=== PATIENT | male | born 1975 | race Caucasian/White ===

== ENCOUNTER 2019-03-27 08:15 | Inpatient (IN) | payer OTHER ==
[2019-03-27 08:34] VITALS: BMI 21.4
--- NOTE | 2019-03-27 09:01 | HP ---
COWS - Scale Resting Pulse: 0= [place] 80 or Below Sweatin= Chills/Flushing Restless Observation: 1= Difficult to Sit Still Pupil Size: 1= Pupils >than Normal Bone or Joint Aches: 2= Severe Diffuse Aches Runny Nose/ Eye Tearin= Runny Nose/Eyes GI Upset > 30mins: 2= Nausea/Diarrhea Tremor Observation: 2= Slight Tremor Visible Yawning Observation: 1= 1-2x During Session Anxiety or Irritability: 2=Irritable/Anxious Goose Flesh Skin: 0=Smooth Skin COWS Score: 14 CIWA Score Nausea/Vomitin Muscle Tremors: 2 Anxiety: 3 Agitation: 3 Paroxysmal Sweats: 1-Minimal Palms Moist Orientation: 0-Oriented Tacttile Disturbances: 1-Very Mild Itch/Numbness Auditory Disturbances: 0-None Visual Disturbances: 0-None Headache: 2-Mild CIWA-Ar Total Score: 14 - Admission Criteria OASAS Guidelines: Admission for Medically Managed Detox: Requires at least one of the followin. CIWA greater than 12 2. Seizures within the past 24 hours 3. Delirium tremens within the past 24 hours 4. Hallucinations within the past 24 hours 5. Acute intervention needed for co occurring medical disorder 6. Acute intervention needed for co occurring psychiatric disorder 7. Severe withdrawal that cannot be handled at a lower level of care (continued vomiting, continued diarrhea, abnormal vital signs) requiring intravenous medication and/or fluids 8. 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 Renal/: Yes: Renal Failure (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 ,need dialysis,now fully recover,teated at [facility]) Psych: Yes: Depression, Other (ptsd depression) - Smoking History Smoking history: Current every day smoker Have you smoked in the past 12 months: No Aproximately how many cigarettes per day: 5 - Alcohol/Substance Use Hx Alcohol Use: Yes History of Substance Use: reports: Cocaine, Heroin - Social History Usual Living Arrangement: Yes: With Spouse 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 History of Recent Travel: No Admission ROS S - HPI Chief Complaint: i need help to stop using heroin,alcohol,cocaine Allergies/Adverse Reactions: Allergies Allergy/AdvReac Type Severity Reaction Status Date / Time fish derived Allergy Severe Rash Verified 03/27/19 08:26 Pork/Porcine Containing Allergy Swelling Verified 03/27/19 08:26 Products History of Present Illness: this 43 years old male with heroin,alcohol,cocaine dependence,seeking detox, withdrawal symptom, last detox [facility] in 2017 had admission in this facility before no seizure syncope renal failure post trauma to kidney admitted and had dialysis at [facility] in 2017 recover completed pancreatitis nicotine dependence longest sobriety ptsd Exam Limitations: No Limitations - Ebola screening Have you traveled outside of the country in the last 21 days: No Have you had contact with anyone from an Ebola affected area: No Do you have a fever: No - Review of Systems Constitutional: Chills, Loss of Appetite, Malaise, Night Sweats, Changes in sleep EENT: reports: Tearing, Nose Congestion Respiratory: reports: No Symptoms reported Cardiac: reports: No Symptoms Reported GI: reports: Diarrhea, Nausea, Poor Appetite, Other (pancreatitis) : reports: No Symptoms Reported, Other (renal failure post tauma, rhabdomyolysis) Musculoskeletal: reports: Back Pain, Muscle Pain Integumentary: reports: Dryness Neuro: reports: Tremors Endocrine: reports: No Symptoms Reported Hematology: reports: No Symptoms Reported Psychiatric: reports: No Sypmtoms Reported, Judgement Intact, Mood/Affect Appropiate, Orientated x3, Depressed, other (ptsd) Patient History - Patient Medical History Hx Anemia: No Hx Asthma: No Hx Chronic Obstructive Pulmonary Disease (COPD): No Hx Cancer: No Hx Cardiac Disorders: No Hx Congestive Heart Failure: No Hx Hypertension: No Hx Hypercholesterolemia: No Hx Pacemaker: No HX Cerebrovascular Accident: No Hx Seizures: No Hx Dementia: No Hx Diabetes: No Hx Gastrointestinal Disorders: Yes (pancreatitis x6,last 2018) Hx Liver Disease: No Hx Genitourinary Disorders: No Hx Sexually Transmitted Disorders: No Hx Renal Disease (ESRD): Yes (acute renal failure,post traume,rhabdomyolysis, fuuly recover) Hx Thyroid Disease: No Hx Human Immunodeficiency Virus (HIV): No Hx Hepatitis C: No Hx Depression: Yes (currently on treatment) Hx Suicide Attempt: Yes (pill overdose in 03/2011) Hx Bipolar Disorder: No Hx Schizophrenia: No Other Medical History: no suiidal,no homicial - Patient Surgical History Past Surgical History: No Hx Neurologic Surgery: No Hx Cataract Extraction: No Hx Cardiac Surgery: No Hx Lung Surgery: No Hx Breast Surgery: No Hx Breast Biopsy: No Hx Abdominal Surgery: No Hx Appendectomy: No Hx Cholecystectomy: No Hx Genitourinary Surgery: No Hx Section: No Hx Orthopedic Surgery: No Anesthesia Reaction: No - PPD History Previous Implant?: Yes Implanted On Prior [facility] Admission?: Yes Date: 12/18/11 PPD to be Administered?: Yes - Smoking Cessation Smoking history: Smoker current status UNK Have you smoked in the past 12 months: No Aproximately how many cigarettes per day: 5 Hx Chewing Tobacco Use: No Initiated information on smoking cessation: Yes 'Breaking Loose' booklet given: 03/27/19 - Substance & Tx. History Hx Alcohol Use: Yes Hx Substance Use: Yes Substance Use Type: Alcohol, Cocaine, Heroin Hx Substance Use Treatment: Yes ([facility] in 2017) - Substances abused Alcohol Substance route: Oral Frequency: Daily Amount used: 6pack beer/1pint of vodka Age of first use: 17 Date of last use: 03/27/19 Heroin Substance route: Injection Frequency: Daily Amount used: 10 bags Age of first use: 12 Date of last use: 03/27/19 Crack Substance route: Smoking Frequency: Daily Amount used: $40 Age of first use: 17 Date of last use: 03/27/19 Admission Physical Exam BHS - Vital Signs Vital Signs: Vital Signs - 24 hr 03/27/19 08:17 Temperature 97.8 F Pulse Rate 78 Respiratory 16 Rate Blood Pressure 124/78 - Physical General Appearance: Yes: Moderate Distress, Tremorous, Irritable, Sweating, Anxious HEENTM: Yes: Normal ENT Inspection, GURU, Pharynx Normal, Other (abraion of vertex) Respiratory: Yes: Lungs Clear, Normal Breath Sounds, No Respiratory Distress Neck: Yes: Within Normal Limits, Supple, Trachea in good position Breast: Yes: Within Normal Limits Cardiology: Yes: Within Normal Limits, Regular Rhythm, Regular Rate, S1, S2 Abdominal: Yes: Within Normal Limits, Normal Bowel Sounds, Non Tender, Flat Genitourinary: Yes: Within Normal Limits Back: Yes: Muscle Spasm Extremities: Yes: Tremors Neurological: Yes: gold frame assembler II-XII NML intact, Fully Oriented, Alert, Motor Strength 5/5 Integumentary: Yes: Dry, Rash, Track [place]cock Lymphatic: Yes: Within Normal Limits - Diagnostic (1) Opioid dependence with withdrawal Current Visit: Yes Status: Acute (2) Alcohol dependence with uncomplicated withdrawal Current Visit: Yes Status: Acute (3) Cocaine dependence Current Visit: No Status: Active (4) Nicotine dependence Current Visit: Yes Status: Acute (5) Weight loss Current Visit: Yes Status: Acute (6) IVDU (intravenous drug user) Current Visit: Yes Status: Acute (7) PTSD (post-traumatic stress disorder) Current Visit: Yes Status: Acute (8) Depression Current Visit: Yes Status: Acute (9) Abrasion Current Visit: Yes Status: Acute (10) History of pancreatitis Current Visit: Yes Status: Acute (11) History of renal failure Current Visit: Yes Status: Acute Cleared for Admission BHS - Detox or Rehab S Level of Care: Medically Managed Detox Regimen/Protocol: Methadone/Librium Inpatient Rehab Admission - Rehab Decision to Admit Inpatient rehab admission?: No
[2019-03-27] MEDS ORDERED: ACETAMINOPHEN 325 MG TABLET (FP) PO PRN ×2 (09:24)
[2019-03-27] MEDS ORDERED: MAGNESIUM CITRATE 300 ML BOTTLE PO PRN (09:24)
[2019-03-27] MEDS ORDERED: BISMUTH SUBSALICYLATE 262 MG/15 ML BTL PO PRN (09:24)
[2019-03-27] MEDS ORDERED: MENTHOL/PHENOL 1 EACH UD MM PRN (09:24)
[2019-03-27] MEDS ORDERED: IBUPROFEN 400 MG TABLET (FP) PO PRN (09:24)
[2019-03-27] MEDS ORDERED: METHADONE HCL 10 MG TABLET (FOR DETOX USE ONLY) PO ONE (09:55)
[2019-03-27] MEDS: BACITRACIN 15 GM TUBE TOPICAL OINTMENT TP SCH ×2 (11:32→22:17)
[2019-03-27] MEDS: PRENATAL VITAMINS W/ FOLIC ACID TABLET (FP) PO SCH (11:32)
[2019-03-27] MEDS: NICOTINE 14 MG/24 HOURS TOPICAL PATCH TD SCH (11:33)
[2019-03-27] MEDS: METHOCARBAMOL 500 MG TABLET PO PRN ×2 (11:38→17:40)
[2019-03-27] MEDS: chlordiazePOXIDE HCL 25 MG CAPSULE PO PRN (11:38)
[2019-03-27] MEDS: cloNIDine HCL 0.1 MG TABLET PO PRN ×2 (11:42→17:05)
[2019-03-27 11:58] LABS: HEMATOCRIT 41.7 % (35.4-49); MCH 30.1 pg (25.7-33.7); MCHC 33.6 g/dl (32.0-35.9); MEAN CELL VOLUME 89.6 fl (80-96); MEAN PLT VOLUME 7.8 fl (7.5-11.1); PLATELET COUNT 228 K/MM3 (134-434); RBC 4.65 M/mm3 (4.00-5.60); RDW 13.7 % (11.9-15.9); WHITE BLOOD COUNT 5.8 K/mm3 (4.0-10.0)
[2019-03-27 12:00] LABS: ALBUMIN 3.7 g/dl (3.4-5.0); BILIRUBIN,TOTAL 0.3 mg/dL (0.2-1); BLOOD UREA NITROGEN 17.1 mg/dL (7-18); CALCIUM 9.2 mg/dL (8.5-10.1); CREATININE 1.1 mg/dL (0.55-1.3); POTASSIUM 4.8 mmol/L (3.5-5.1); TOT PROT 7.6 g/dl (6.4-8.2)
[2019-03-27] MEDS: MAGNESIUM HYDROX 2400MG/30ML ORAL SUSPENSION 30 ML CUP PO PRN (17:40)
[2019-03-27] MEDS: MAG HYDROX/AL HYDROX/SIMETH 30 ML UNIT-DOSE CUP PO PRN (17:57)
[2019-03-27] MEDS: THIAMINE HCL 100 MG TABLET (FP) PO SCH (22:17)
[2019-03-27] MEDS: MELATONIN 5 MG TABLETS PO PRN (22:17)
[2019-03-27] MEDS: chlordiazePOXIDE HCL 25 MG CAPSULE PO SCH (22:17)
[2019-03-28] MEDS: chlordiazePOXIDE HCL 25 MG CAPSULE PO SCH ×4 (06:19→22:27)
[2019-03-28] MEDS: METHOCARBAMOL 500 MG TABLET PO PRN ×3 (06:20→22:34)
--- NOTE | 2019-03-28 08:27 | CONSULT ---
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 Refer to addiction counselor's summary for further information Medical History: Significant for history of renal failure and pancreatitis. Smokes 5 cigarettes daily Psychiatric History: Patient while being seen by insurance underwriter sales, walked out of the office saying:" I really don't want to do this"
[2019-03-28] MEDS ORDERED: METHADONE HCL 10 MG TABLET (FOR DETOX USE ONLY) ONE (09:31)
[2019-03-28] MEDS ORDERED: METHADONE HCL 5 MG TABLET (FOR DETOX USE ONLY) ONE (09:31)
[2019-03-28] MEDS ORDERED: METHADONE (DETOX) 20 MG, METHADONE (DETOX) 5 MG PO ONE (10:00)
--- NOTE | 2019-03-28 10:07 | PN ---
[facility] CIWA - CIWA Score Nausea/Vomitin-No Nausea/No Vomiting Muscle Tremors: 3 Anxiety: 3 Agitation: 3 Paroxysmal Sweats: 3 Orientation: 0-Oriented Tacttile Disturbances: 0-None Auditory Disturbances: 0-None Visual Disturbances: 0-None Headache: 0-None Present CIWA-Ar Total Score: 12 [facility] COWS - Scale Resting Pulse: 0= [place] 80 or Below Sweatin= Chills/Flushing Restless Observation: 1= Difficult to Sit Still Pupil Size: 0= Normal to Room Light Bone or Joint Aches: 2= Severe Diffuse Aches Runny Nose/ Eye Tearin= Nasal Congestion GI Upset > 30mins: 0= None Tremor Observation of Outstretched Hands: 1= Tremor [place], Not Seen Yawning Observation: 2= >3x During Session Anxiety or Irritability: 2=Irritable/Anxious Goose Flesh Skin: 0=Smooth Skin COWS Score: 10 [facility] Progress Note (SOAP) Subjective: chills sweats irritable agitation interrupted sleep Objective: 03/28/19 10:06 Vital Signs Temperature 97.3 F L 03/28/19 09:18 Pulse Rate 58 L 03/28/19 09:18 Respiratory Rate 18 03/28/19 09:18 Blood Pressure 112/68 03/28/19 09:18 O2 Sat by Pulse Oximetry (%) Laboratory Tests 03/27/19 03/27/19 03/27/19 09:45 09:45 09:45 WBC 5.8 RBC 4.65 Hgb 14.0 Hct 41.7 MCV 89.6 MCH 30.1 MCHC 33.6 RDW 13.7 Plt Count 228 MPV 7.8 Sodium 141 Potassium 4.8 Chloride 107 Carbon Dioxide 28 Anion Gap 6 L BUN 17.1 Creatinine 1.1 Est GFR (CKD-EPI)AfAm 95.46 Est GFR (CKD-EPI)NonAf 82.36 Random Glucose 88 Calcium 9.2 Total Bilirubin 0.3 AST 12 L ALT 19 Alkaline Phosphatase 65 Total Protein 7.6 Albumin 3.7 RPR Titer Nonreactive aaox3 ambulating no acute distress Assessment: 03/28/19 10:06 withdrawals Plan: continue detox
[2019-03-28] MEDS: BACITRACIN 15 GM TUBE TOPICAL OINTMENT TP SCH ×2 (10:15→22:28)
[2019-03-28] MEDS: PRENATAL VITAMINS W/ FOLIC ACID TABLET (FP) PO SCH (10:15)
[2019-03-28] MEDS: NICOTINE 14 MG/24 HOURS TOPICAL PATCH TD SCH (10:15)
[2019-03-28 10:38] LABS: URINE APPEARANCE CLEAR; URINE BILIRUBIN NEGATIVE (NEGATIVE); URINE COLOR YELLOW; URINE GLUCOSE (UA) NEGATIVE (NEGATIVE); URINE KETONE NEGATIVE (NEGATIVE); URINE LEUK ESTERASE NEGATIVE (NEGATIVE); URINE NITRITE NEGATIVE (NEGATIVE); URINE PROTEIN NEGATIVE (NEGATIVE)
[2019-03-28] MEDS: cloNIDine HCL 0.1 MG TABLET PO PRN (12:40)
[2019-03-28] MEDS: MAG HYDROX/AL HYDROX/SIMETH 30 ML UNIT-DOSE CUP PO PRN (13:31)
[2019-03-28] MEDS: MELATONIN 5 MG TABLETS PO PRN (22:28)
[2019-03-28] MEDS: THIAMINE HCL 100 MG TABLET (FP) PO SCH (22:28)
[2019-03-29] MEDS: chlordiazePOXIDE HCL 25 MG CAPSULE PO SCH ×4 (05:35→22:18)
[2019-03-29] MEDS: METHOCARBAMOL 500 MG TABLET PO PRN ×3 (05:38→18:56)
[2019-03-29] MEDS ORDERED: METHADONE HCL 10 MG TABLET (FOR DETOX USE ONLY) PO ONE (10:00)
[2019-03-29] MEDS: PRENATAL VITAMINS W/ FOLIC ACID TABLET (FP) PO SCH (10:07)
[2019-03-29] MEDS: MAGNESIUM HYDROX 2400MG/30ML ORAL SUSPENSION 30 ML CUP PO PRN (10:07)
[2019-03-29] MEDS: NICOTINE 14 MG/24 HOURS TOPICAL PATCH TD SCH (10:07)
[2019-03-29] MEDS: BACITRACIN 15 GM TUBE TOPICAL OINTMENT TP SCH ×2 (10:08→22:30)
[2019-03-29] MEDS: cloNIDine HCL 0.1 MG TABLET PO PRN ×2 (10:10→18:56)
--- NOTE | 2019-03-29 10:10 | PN ---
[facility] CIWA - CIWA Score Nausea/Vomitin-No Nausea/No Vomiting Muscle Tremors: 2 Anxiety: 2 Agitation: 2 Paroxysmal Sweats: 3 Orientation: 0-Oriented Tacttile Disturbances: 0-None Auditory Disturbances: 0-None Visual Disturbances: 0-None Headache: 0-None Present CIWA-Ar Total Score: 9 [facility] COWS - Scale Resting Pulse: 0= [place] 80 or Below Sweatin= Chills/Flushing Restless Observation: 1= Difficult to Sit Still Pupil Size: 0= Normal to Room Light Bone or Joint Aches: 2= Severe Diffuse Aches Runny Nose/ Eye Tearin= None GI Upset > 30mins: 0= None Tremor Observation of Outstretched Hands: 1= Tremor [place], Not Seen Yawning Observation: 1= 1-2x During Session Anxiety or Irritability: 1=Feels Anxious/Irritable Goose Flesh Skin: 0=Smooth Skin COWS Score: 7 S Progress Note (SOAP) Subjective: body aches sweats irritable agitation Objective: 03/29/19 10:09 Vital Signs Temperature 97.1 F L 03/29/19 09:31 Pulse Rate 59 L 03/29/19 09:31 Respiratory Rate 18 03/29/19 09:31 Blood Pressure 113/76 03/29/19 09:31 O2 Sat by Pulse Oximetry (%) Laboratory Tests 03/27/19 03/27/19 03/27/19 09:45 09:45 09:45 WBC 5.8 RBC 4.65 Hgb 14.0 Hct 41.7 MCV 89.6 MCH 30.1 MCHC 33.6 RDW 13.7 Plt Count 228 MPV 7.8 Sodium 141 Potassium 4.8 Chloride 107 Carbon Dioxide 28 Anion Gap 6 L BUN 17.1 Creatinine 1.1 Est GFR (CKD-EPI)AfAm 95.46 Est GFR (CKD-EPI)NonAf 82.36 Random Glucose 88 Calcium 9.2 Total Bilirubin 0.3 AST 12 L ALT 19 Alkaline Phosphatase 65 Total Protein 7.6 Albumin 3.7 Urine Color Urine Appearance Urine pH Ur Specific [place] Urine Protein Urine Glucose (UA) Urine Ketones Urine Blood Urine Nitrite Urine Bilirubin Urine Urobilinogen Ur Leukocyte Esterase RPR Titer Nonreactive 03/28/19 08:00 WBC RBC Hgb Hct MCV MCH MCHC RDW Plt Count MPV Sodium Potassium Chloride Carbon Dioxide Anion Gap BUN Creatinine Est GFR (CKD-EPI)AfAm Est GFR (CKD-EPI)NonAf Random Glucose Calcium Total Bilirubin AST ALT Alkaline Phosphatase Total Protein Albumin Urine Color Yellow Urine Appearance Clear Urine pH 7.0 D Ur Specific [place] 1.023 Urine Protein Negative Urine Glucose (UA) Negative Urine Ketones Negative Urine Blood Negative Urine Nitrite Negative Urine Bilirubin Negative Urine Urobilinogen 1.0 Ur Leukocyte Esterase Negative RPR Titer aaox3 ambulating no acute distress Assessment: 03/29/19 10:09 withdrawals Plan: continue detox increase fluids motrin/roboxin prn
[2019-03-29] MEDS: chlordiazePOXIDE HCL 25 MG CAPSULE PO PRN (12:41)
[2019-03-29] MEDS: THIAMINE HCL 100 MG TABLET (FP) PO SCH (22:18)
[2019-03-29] MEDS: MELATONIN 5 MG TABLETS PO PRN (22:18)
[2019-03-29] MEDS: hydrOXYzine PAMOATE 25 MG CAPSULE (FP) PO PRN (22:20)
[2019-03-29] MEDS: MAG HYDROX/AL HYDROX/SIMETH 30 ML UNIT-DOSE CUP PO PRN (22:45)
[2019-03-30] MEDS ORDERED: chlordiazePOXIDE HCL 10 MG CAPSULE PO PRN
[2019-03-30] MEDS: chlordiazePOXIDE HCL 10 MG CAPSULE PO SCH ×4 (06:10→22:10)
[2019-03-30] MEDS ORDERED: METHADONE HCL 5 MG TABLET (FOR DETOX USE ONLY) ONE (08:44)
[2019-03-30] MEDS ORDERED: METHADONE HCL 10 MG TABLET (FOR DETOX USE ONLY) ONE (08:45)
[2019-03-30] MEDS ORDERED: METHADONE (DETOX) 10 MG, METHADONE (DETOX) 5 MG PO ONE (10:00)
[2019-03-30] MEDS: NICOTINE 14 MG/24 HOURS TOPICAL PATCH TD SCH (10:05)
[2019-03-30] MEDS: PRENATAL VITAMINS W/ FOLIC ACID TABLET (FP) PO SCH (10:05)
[2019-03-30] MEDS: BACITRACIN 15 GM TUBE TOPICAL OINTMENT TP SCH ×2 (10:06→22:10)
[2019-03-30] MEDS: METHOCARBAMOL 500 MG TABLET PO PRN ×2 (10:09→17:48)
--- NOTE | 2019-03-30 10:55 | PN ---
[facility] CIWA - CIWA Score Nausea/Vomitin-No Nausea/No Vomiting Muscle Tremors: 2 Anxiety: 2 Agitation: 2 Paroxysmal Sweats: 2 Orientation: 0-Oriented Tacttile Disturbances: 0-None Auditory Disturbances: 0-None Visual Disturbances: 0-None Headache: 0-None Present CIWA-Ar Total Score: 8 [facility] COWS - Scale Resting Pulse: 2= [place] 101-120 Sweatin= Chills/Flushing Restless Observation: 1= Difficult to Sit Still Pupil Size: 0= Normal to Room Light Bone or Joint Aches: 1= Mild Discomfort Runny Nose/ Eye Tearin= None GI Upset > 30mins: 0= None Tremor Observation of Outstretched Hands: 1= Tremor [place], Not Seen Yawning Observation: 1= 1-2x During Session Anxiety or Irritability: 1=Feels Anxious/Irritable Goose Flesh Skin: 0=Smooth Skin COWS Score: 8 [facility] Progress Note (SOAP) Subjective: sweats body aches interrupted sleep shakes Objective: 03/30/19 10:57 Vital Signs Temperature 97.5 F L 03/30/19 10:12 Pulse Rate 69 03/30/19 10:12 Respiratory Rate 18 03/30/19 10:12 Blood Pressure 110/67 03/30/19 10:12 O2 Sat by Pulse Oximetry (%) Laboratory Tests 03/27/19 03/27/19 03/27/19 09:45 09:45 09:45 WBC 5.8 RBC 4.65 Hgb 14.0 Hct 41.7 MCV 89.6 MCH 30.1 MCHC 33.6 RDW 13.7 Plt Count 228 MPV 7.8 Sodium 141 Potassium 4.8 Chloride 107 Carbon Dioxide 28 Anion Gap 6 L BUN 17.1 Creatinine 1.1 Est GFR (CKD-EPI)AfAm 95.46 Est GFR (CKD-EPI)NonAf 82.36 Random Glucose 88 Calcium 9.2 Total Bilirubin 0.3 AST 12 L ALT 19 Alkaline Phosphatase 65 Total Protein 7.6 Albumin 3.7 Urine Color Urine Appearance Urine pH Ur Specific [place] Urine Protein Urine Glucose (UA) Urine Ketones Urine Blood Urine Nitrite Urine Bilirubin Urine Urobilinogen Ur Leukocyte Esterase RPR Titer Nonreactive 03/28/19 08:00 WBC RBC Hgb Hct MCV MCH MCHC RDW Plt Count MPV Sodium Potassium Chloride Carbon Dioxide Anion Gap BUN Creatinine Est GFR (CKD-EPI)AfAm Est GFR (CKD-EPI)NonAf Random Glucose Calcium Total Bilirubin AST ALT Alkaline Phosphatase Total Protein Albumin Urine Color Yellow Urine Appearance Clear Urine pH 7.0 D Ur Specific [place] 1.023 Urine Protein Negative Urine Glucose (UA) Negative Urine Ketones Negative Urine Blood Negative Urine Nitrite Negative Urine Bilirubin Negative Urine Urobilinogen 1.0 Ur Leukocyte Esterase Negative RPR Titer aaox3 ambulating no acute distress Assessment: 03/30/19 10:57 withdrawals Plan: continue detox increase fluids
[2019-03-30] MEDS: MAG HYDROX/AL HYDROX/SIMETH 30 ML UNIT-DOSE CUP PO PRN (20:18)
[2019-03-30] MEDS: MELATONIN 5 MG TABLETS PO PRN (22:10)
[2019-03-30] MEDS: THIAMINE HCL 100 MG TABLET (FP) PO SCH (22:10)
[2019-03-31] MEDS ORDERED: hydrOXYzine PAMOATE 25 MG CAPSULE (FP) PO ONE (02:05)
[2019-03-31] MEDS: MAG HYDROX/AL HYDROX/SIMETH 30 ML UNIT-DOSE CUP PO PRN (02:06)
[2019-03-31] MEDS: chlordiazePOXIDE HCL 10 MG CAPSULE PO SCH ×2 (05:48→17:41)
[2019-03-31] MEDS: METHOCARBAMOL 500 MG TABLET PO PRN ×2 (05:49→17:43)
[2019-03-31] MEDS: BACITRACIN 15 GM TUBE TOPICAL OINTMENT TP SCH ×2 (09:37→23:51)
[2019-03-31] MEDS: NICOTINE 14 MG/24 HOURS TOPICAL PATCH TD SCH (09:37)
[2019-03-31] MEDS: PRENATAL VITAMINS W/ FOLIC ACID TABLET (FP) PO SCH (09:37)
[2019-03-31] MEDS ORDERED: METHADONE HCL 10 MG TABLET (FOR DETOX USE ONLY) PO ONE (10:00)
--- NOTE | 2019-03-31 11:56 | PN ---
[facility] CIWA - CIWA Score Nausea/Vomitin-No Nausea/No Vomiting Muscle Tremors: 1-None Visible, but [place] Anxiety: 1-Mildly Anxious Agitation: 1-Slight > Activity Paroxysmal Sweats: No Perspiration Orientation: 0-Oriented Tacttile Disturbances: 0-None Auditory Disturbances: 0-None Visual Disturbances: 0-None Headache: 0-None Present CIWA-Ar Total Score: 3 S COWS - Scale Resting Pulse: 0= [place] 80 or Below Sweatin= Chills/Flushing Restless Observation: 1= Difficult to Sit Still Pupil Size: 0= Normal to Room Light Bone or Joint Aches: 1= Mild Discomfort Runny Nose/ Eye Tearin= None GI Upset > 30mins: 0= None Tremor Observation of Outstretched Hands: 0= None Yawning Observation: 0= None Anxiety or Irritability: 0= None Goose Flesh Skin: 0=Smooth Skin COWS Score: 3 [facility] Progress Note (SOAP) Subjective: feeling better sweats Objective: 03/31/19 11:55 Vital Signs Temperature 97.9 F 03/31/19 09:34 Pulse Rate 70 03/31/19 09:34 Respiratory Rate 18 03/31/19 09:34 Blood Pressure 123/76 03/31/19 09:34 O2 Sat by Pulse Oximetry (%) aaox3 ambulating no acute distress Assessment: 03/31/19 11:55 mild withdrawals Plan: continue detox d/c in am
[2019-03-31] MEDS: MELATONIN 5 MG TABLETS PO PRN (22:14)
[2019-03-31] MEDS: hydrOXYzine PAMOATE 25 MG CAPSULE (FP) PO PRN (22:14)
[2019-03-31] MEDS: THIAMINE HCL 100 MG TABLET (FP) PO SCH (23:52)
[2019-04-01] MEDS ORDERED: chlordiazePOXIDE HCL 10 MG CAPSULE PO ONE (05:00)
[2019-04-01] MEDS ORDERED: METHADONE HCL 5 MG TABLET (FOR DETOX USE ONLY) PO ONE (06:00)
[2019-04-01 06:52] VITALS: BP 105/66; PULSE 68; TEMP 97.7
--- NOTE | 2019-04-01 16:57 | DS ---
[facility] Detox Discharge Summary Admission Date: 03/27/19 Discharge Date: 04/01/19 - History Present History: Alcohol Dependence, Opioid Dependence Additional Comments: Patient completed detox successfully and discharged safely. Patient to follow up with PCP within 1-2 weeks. - Physical Exam Results Vital Signs: Vital Signs Temperature 97.7 F 04/01/19 06:00 Pulse Rate 68 04/01/19 06:00 Respiratory Rate 18 04/01/19 06:00 Blood Pressure 105/66 04/01/19 06:00 O2 Sat by Pulse Oximetry (%) Pertinent Admission Physical Exam Findings: Withdrawal sxs Laboratory Tests 03/27/19 03/27/19 03/27/19 09:45 09:45 09:45 WBC 5.8 RBC 4.65 Hgb 14.0 Hct 41.7 MCV 89.6 MCH 30.1 MCHC 33.6 RDW 13.7 Plt Count 228 MPV 7.8 Sodium 141 Potassium 4.8 Chloride 107 Carbon Dioxide 28 Anion Gap 6 L BUN 17.1 Creatinine 1.1 Est GFR (CKD-EPI)AfAm 95.46 Est GFR (CKD-EPI)NonAf 82.36 Random Glucose 88 Calcium 9.2 Total Bilirubin 0.3 AST 12 L ALT 19 Alkaline Phosphatase 65 Total Protein 7.6 Albumin 3.7 Urine Color Urine Appearance Urine pH Ur Specific [place] Urine Protein Urine Glucose (UA) Urine Ketones Urine Blood Urine Nitrite Urine Bilirubin Urine Urobilinogen Ur Leukocyte Esterase RPR Titer Nonreactive 03/28/19 08:00 WBC RBC Hgb Hct MCV MCH MCHC RDW Plt Count MPV Sodium Potassium Chloride Carbon Dioxide Anion Gap BUN Creatinine Est GFR (CKD-EPI)AfAm Est GFR (CKD-EPI)NonAf Random Glucose Calcium Total Bilirubin AST ALT Alkaline Phosphatase Total Protein Albumin Urine Color Yellow Urine Appearance Clear Urine pH 7.0 D Ur Specific [place] 1.023 Urine Protein Negative Urine Glucose (UA) Negative Urine Ketones Negative Urine Blood Negative Urine Nitrite Negative Urine Bilirubin Negative Urine Urobilinogen 1.0 Ur Leukocyte Esterase Negative RPR Titer Labs reviewed - Treatment Hospital Course: Detox Protocol Followed, Detoxed Safely, Responded well, Discharged Condition Good - Medication Discharge Medications: Ambulatory Orders Quetiapine Fumarate [Seroquel -] 200 mg PO HS 12/15/11 traZODone HCL [Desyrel -] 150 mg PO HS 12/15/11 - Diagnosis (1) Cocaine dependence Status: Chronic (2) Alcohol dependence with uncomplicated withdrawal Status: Acute (3) Depression Status: Chronic (4) Opioid dependence with withdrawal Status: Acute (5) PTSD (post-traumatic stress disorder) Status: Chronic - AMA Did Patient Leave Against Medical Advice: No (Follow up with PCP within 1-2 weeks)
== END 2019-04-01 06:13 | disposition home or self-care (01) | DRG 773 ==
LOC: YASAS 08:15 → Y6N 09:14
PROVIDERS: ADMIT Allergy & Immunology; ATTEND Allergy & Immunology
PROC: HZ2ZZZZ Detoxification Services for Substance Abuse Treatment (ICD-10-PCS; principal; 2019-03-27)
DX: F11.23 Opioid dependence with withdrawal (principal); F10.230 Alcohol dependence with withdrawal, uncomplicated; F14.20 Cocaine dependence, uncomplicated; F17.210 Nicotine dependence, cigarettes, uncomplicated; F43.10 Post-traumatic stress disorder, unspecified; F32.9 Major depressive disorder, single episode, unspecified; R63.4 Abnormal weight loss; Z68.21 Body mass index [BMI] 21.0-21.9, adult; Z87.448 Personal history of other diseases of urinary system; Z87.19 Personal history of other diseases of the digestive system; Z91.5 Personal history of self-harm; Z91.013 Allergy to seafood; Z91.018 Allergy to other foods
CPT/HCPCS: 36415; 80053; 81003; 85027; 86593; J0735

== ENCOUNTER 2019-12-26 09:24 | Inpatient (IN) | payer OTHER ==
[2019-12-26 10:00] VITALS: BMI 21.6
--- NOTE | 2019-12-26 10:22 | BHS.RME ---
Substance Use & Tx History - Substance Use History Alcohol Substance amount: 1 pint vodka Frequency of use: Daily Substance route: Oral Date of Last Use: 12/26/19 (starte age 17) Heroin Substance amount: 12-13 bags Frequency of use: Daily Substance route: Inhalation (ex: sniffing or snorting) Date of Last Use: 12/26/19 Marijuana/Hashish Substance amount: 2 blunts Frequency of use: Daily Substance route: Smoking Date of Last Use: 12/25/19 (started age 12) Cocaine- Powder Substance amount: $20 Frequency of use: Daily Substance route: Injection (ex: intravenous or skin popping) Date of Last Use: 12/25/19 (starated age 17) Nicotine Substance amount: 1/2 pack Frequency of use: Daily Substance route: Smoking Date of Last Use: 12/26/19 (started age 28) - Last Treatment Date of last treatment: 03/27-04/01/19 completed Treatment type: Substance Use Disorder (TOÑO) Where was last treatment: Detox Physical/Psych/Mental Status - Behavior General Behavior: Increased activity (restlessness, agitation) Eye Contact: Normal - Cooperativeness Cooperativeness: Cooperative - Thinking Thought Processes: Tight, Logical, Goal Directed - Physical Health Problems Is patient presently having any pain?: No Does patient presently have any injuries (include location): No Does patient currently have a fever: No Is patient : No COWS - Scale Resting Pulse: 1= [place] 81-100 Sweatin= Beads of Sweat on Face Restless Observation: 1= Difficult to Sit Still Pupil Size: 1= Pupils >than Normal Bone or Joint Aches: 1= Mild Discomfort Runny Nose/ Eye Tearin= Runny Nose/Eyes GI Upset > 30mins: 1= Stomach Cramp Tremor Observation: 1= Tremor [place], Not Seen Yawning Observation: 0= None Anxiety or Irritability: 2=Irritable/Anxious Goose Flesh Skin: 3=Piloerection COWS Score: 16 CIWA Nausea/Vomitin Muscle Tremors: 1-None Visible, but [place] Anxiety: 4-Mod. Anxious/Guarded Agitation: 4-Moderately Restless Paroxysmal Sweats: 5 Orientation: 1-Uncertain about Date Tacttile Disturbances: 0-None Auditory Disturbances: 0-None Visual Disturbances: 0-None Headache: 0-None Present CIWA-Ar Total Score: 17
[2019-12-26] MEDS ORDERED: ACETAMINOPHEN 325 MG TABLET (FP) PO PRN ×2 (10:32)
[2019-12-26] MEDS ORDERED: BISMUTH SUBSALICYLATE 262 MG/15 ML BTL PO PRN (10:32)
[2019-12-26] MEDS ORDERED: IBUPROFEN 400 MG TABLET (FP) PO PRN (10:32)
[2019-12-26] MEDS ORDERED: NICOTINE POLACRILEX 2 MG GUM BUC PRN (10:32)
[2019-12-26] MEDS ORDERED: MAGNESIUM HYDROX 2400MG/30ML ORAL SUSPENSION 30 ML CUP PO PRN (10:32)
[2019-12-26] MEDS ORDERED: METHOCARBAMOL 500 MG TABLET PO PRN (10:32)
[2019-12-26] MEDS ORDERED: MAG HYDROX/AL HYDROX/SIMETH 30 ML UNIT-DOSE CUP PO PRN (10:32)
[2019-12-26] MEDS ORDERED: MAGNESIUM CITRATE 300 ML BOTTLE PO PRN (10:32)
[2019-12-26] MEDS ORDERED: MENTHOL/PHENOL 1 EACH UD MM PRN (10:32)
[2019-12-26] MEDS ORDERED: ONDANSETRON *ODT* 4 MG TABLET SL PRN (10:32)
[2019-12-26] MEDS ORDERED: METHADONE HCL 10 MG TABLET (FOR DETOX USE ONLY) PO ONE (10:32)
--- NOTE | 2019-12-26 10:32 | HP ---
COWS - Scale Resting Pulse: 1= [place] 81-100 Sweatin= Beads of Sweat on Face Restless Observation: 1= Difficult to Sit Still Pupil Size: 1= Pupils >than Normal Bone or Joint Aches: 1= Mild Discomfort Runny Nose/ Eye Tearin= Runny Nose/Eyes GI Upset > 30mins: 1= Stomach Cramp Tremor Observation: 1= Tremor [place], Not Seen Yawning Observation: 0= None Anxiety or Irritability: 2=Irritable/Anxious Goose Flesh Skin: 3=Piloerection COWS Score: 16 CIWA Score Nausea/Vomitin Muscle Tremors: 1-None Visible, but [place] Anxiety: 4-Mod. Anxious/Guarded Agitation: 4-Moderately Restless Paroxysmal Sweats: 5 Orientation: 1-Uncertain about Date Tacttile Disturbances: 0-None Auditory Disturbances: 0-None Visual Disturbances: 0-None Headache: 0-None Present CIWA-Ar Total Score: 17 - Admission Criteria OASAS Guidelines: Admission for Medically Managed Detox: Requires at least one of the followin. CIWA greater than 12 2. Seizures within the past 24 hours 3. Delirium tremens within the past 24 hours 4. Hallucinations within the past 24 hours 5. Acute intervention needed for co occurring medical disorder 6. Acute intervention needed for co occurring psychiatric disorder 7. Severe withdrawal that cannot be handled at a lower level of care (continued vomiting, continued diarrhea, abnormal vital signs) requiring intravenous medication and/or fluids 8. Admitting History and Physical - Admission Chief Complaint: Mr. Meza is a 44 yo man who presents to [facility] requesting detox admission for alcohol and opiate use disorder. History of Present Illness: Mr. Meza is a 44 yo man who presents to [facility] requesting detox admission for alcohol and opiate use disorder. PMH: pancreatitis, renal failure 2017: recovered PSH; none Psych: depression SOC: living in [place] with his Legal: none Substance Use History Alcohol Substance amount: 1 pint vodka Frequency of use: Daily Substance route: Oral Date of Last Use: 12/26/19 (started age 17) No seizures Blackouts: remote past Eyeopener: yes Heroin Substance amount: 12-13 bags Frequency of use: Daily Substance route: Inhalation (ex: sniffing or snorting) Date of Last Use: 12/26/19 No hx of OD has Narcan at home Marijuana/Hashish Substance amount: 2 blunts Frequency of use: Daily Substance route: Smoking Date of Last Use: 12/25/19 (started age 12) Cocaine- Powder Substance amount: $20 Frequency of use: Daily Substance route: Injection (ex: intravenous or skin popping) Date of Last Use: 12/25/19 (starated age 17) Nicotine Substance amount: 1/2 pack Frequency of use: Daily Substance route: Smoking Date of Last Use: 12/26/19 (started age 28) - Last Treatment Date of last treatment: 03/27-04/01/19 completed Treatment type: Substance Use Disorder (TOÑO) Where was last treatment: Detox History Source: Patient Limitations to Obtaining History: No Limitations - Past Medical History REHABILITATION THERAPY AIDE: Yes: Syncope Renal/: Yes: Renal Failure (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 ,need dialysis,now fully recover[facility]) Psych: Yes: Depression, Other (ptsd depression) - Smoking History Smoking history: Current every day smoker Have you smoked in the past 12 months: Yes Aproximately how many cigarettes per day: 10 - Alcohol/Substance Use Hx Alcohol Use: Yes History of Substance Use: reports: Cocaine, Heroin - Social History 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 Loss EENT: reports: Blurred Vision (feels he may need glasses, trouble with distant vision), Tinnitus (chronic) Respiratory: reports: No Symptoms reported Cardiac: reports: No Symptoms Reported GI: reports: Nausea : reports: No Symptoms Reported Musculoskeletal: reports: Back Pain (mild), Other (multiple lesions on legs he states from being struck by a pallet at work, multiple scabs) Integumentary: reports: Other (above) Neuro: reports: No Symptoms reported Endocrine: reports: No Symptoms Reported Hematology: reports: No Symptoms Reported Psychiatric: reports: Anxious, Depressed (no SI, no hospitalizations) Patient History - Patient Medical History Hx Anemia: No Hx Asthma: No Hx Chronic Obstructive Pulmonary Disease (COPD): No Hx Cancer: No Hx Cardiac Disorders: No Hx Congestive Heart Failure: No Hx Hypertension: No Hx Hypercholesterolemia: No Hx Pacemaker: No HX Cerebrovascular Accident: No Hx Seizures: No Hx Dementia: No Hx Diabetes: No Hx Gastrointestinal Disorders: No Hx Liver Disease: No Hx Genitourinary Disorders: No Hx Sexually Transmitted Disorders: No Hx Renal Disease (ESRD): No Hx Thyroid Disease: No Hx Human Immunodeficiency Virus (HIV): No Hx Hepatitis C: No Hx Depression: Yes (not currently in tx) Hx Suicide Attempt: No Hx Bipolar Disorder: No Hx Schizophrenia: No - Patient Surgical History Past Surgical History: No Hx Neurologic Surgery: No Hx Cataract Extraction: No Hx Cardiac Surgery: No Hx Lung Surgery: No Hx Breast Surgery: No Hx Breast Biopsy: No Hx Abdominal Surgery: No Hx Appendectomy: No Hx Cholecystectomy: No Hx Genitourinary Surgery: No Hx Section: No Hx Orthopedic Surgery: No Anesthesia Reaction: No - PPD History Previous Implant?: Yes Documented Results: Negative w/proof Implanted On Prior [facility] Admission?: Yes Date: 03/29/19 Results: 0 mm - Smoking Cessation Smoking history: Current every day smoker Have you smoked in the past 12 months: Yes Aproximately how many cigarettes per day: 10 Hx Chewing Tobacco Use: No Initiated information on smoking cessation: Yes 'Breaking Loose' booklet given: 12/26/19 Admission Physical Exam BHS - Vital Signs Vital Signs: Vital Signs - 24 hr 12/26/19 09:58 Temperature 97.6 F Pulse Rate 90 Respiratory 20 Rate Blood Pressure 123/77 - Physical General Appearance: Yes: No Apparent Distress, Nourished, Appropriately Dressed, Thin HEENTM: Yes: EOMI, Hearing grossly Normal, Normocephalic, Normal Voice Respiratory: Yes: Lungs Clear, No Respiratory Distress, No Accessory Muscle Use Neck: Yes: Within Normal Limits, Supple Breast: Yes: Breast Exam Deferred Cardiology: Yes: Regular Rhythm, Regular Rate Abdominal: Yes: Normal Bowel Sounds, Non Tender, Flat, Soft Genitourinary: Yes: Other (deferred) Back: Yes: Normal Inspection Musculoskeletal: Yes: Gait Steady Extremities: Yes: Normal Inspection Neurological: Yes: Alert, Normal Response Integumentary: Yes: Track Babcock, Other (multiple circular scabbed over lesions on legs, one on left forearm) Cleared for Admission [facility] - Detox or Rehab [facility] Level of Care: Medically Managed Detox Regimen/Protocol: Methadone/Librium Breathalyzer - Breathalyzer Breathalyzer: 0.011 Urine Drug Screen - Test Device Lot number: [id number] Expiration date: 06/26/21 - Control Is test valid?: Yes - Results Drug screen NEGATIVE: No Urine drug screen results: THC-Marijuana, FEN-Fentanyl, MOP-Opiates, MTD- Methadone Inpatient Rehab Admission - Rehab Decision to Admit Inpatient rehab admission?: No
[2019-12-26] MEDS: cloNIDine HCL 0.1 MG TABLET PO PRN ×2 (12:17→20:42)
[2019-12-26] MEDS: chlordiazePOXIDE HCL 25 MG CAPSULE PO SCH ×3 (12:18→22:36)
[2019-12-26] MEDS: NICOTINE 14 MG/24 HOURS TOPICAL PATCH TD SCH (12:18)
[2019-12-26] MEDS: MUPIROCIN CA 2% TOPICAL CREAM 15 GM TUBE TP SCH ×2 (12:18→22:36)
[2019-12-26 12:57] LABS: HEMATOCRIT 45.5 % (35.4-49); HEMOGLOBIN 15.5 GM/dL (11.7-16.9); MCH 29.9 pg (25.7-33.7); MCHC 34.1 g/dl (32.0-35.9); MEAN CELL VOLUME 87.7 fl (80-96); MEAN PLT VOLUME 7.5 fl (7.5-11.1); PLATELET COUNT 220 K/MM3 (134-434); RBC 5.19 M/mm3 (4.00-5.60); RDW 13.6 % (11.9-15.9); WHITE BLOOD COUNT 5.4 K/mm3 (4.0-10.0)
[2019-12-26 13:12] LABS: ALBUMIN 3.9 g/dl (3.4-5.0); BILIRUBIN,TOTAL 0.8 mg/dL (0.2-1); BLOOD UREA NITROGEN 18.9 mg/dL (7-18); CALCIUM 8.9 mg/dL (8.5-10.1); CREATININE 1.3 mg/dL (0.55-1.3); POTASSIUM 4.3 mmol/L (3.5-5.1); TOT PROT 7.9 g/dl (6.4-8.2)
--- NOTE | 2019-12-26 13:45 | EKG ---
Test Reason : Blood Pressure : / mmHG Vent. Rate : 057 BPM Atrial Rate : 057 BPM P-R Int : 164 ms QRS Dur : 096 ms QT Int : 420 ms P-R-T Axes : 079 -11 073 degrees QTc Int : 408 ms SINUS BRADYCARDIA OTHERWISE NORMAL ECG NO PREVIOUS ECGS AVAILABLE Confirmed by Miguel A Luo MD ([id number]) on 12/26/2019 1:44:54 PM Referred By: Confirmed By:Miguel A Luo MD
[2019-12-26] MEDS: hydrOXYzine PAMOATE 25 MG CAPSULE (FP) PO SCH ×3 (13:46→22:36)
[2019-12-26] MEDS: chlordiazePOXIDE HCL 25 MG CAPSULE PO PRN ×2 (15:44→20:42)
[2019-12-26] MEDS: THIAMINE HCL 100 MG TABLET (FP) PO SCH (22:36)
[2019-12-26] MEDS: MELATONIN 5 MG TABLETS PO SCH (22:36)
[2019-12-27] MEDS: hydrOXYzine PAMOATE 25 MG CAPSULE (FP) PO SCH ×5 (00:16→22:50)
[2019-12-27] MEDS: chlordiazePOXIDE HCL 25 MG CAPSULE PO SCH ×4 (05:16→22:50)
[2019-12-27] MEDS ORDERED: METHADONE HCL 10 MG TABLET (FOR DETOX USE ONLY) ONE (09:07)
[2019-12-27] MEDS ORDERED: METHADONE HCL 5 MG TABLET (FOR DETOX USE ONLY) ONE (09:07)
[2019-12-27] MEDS ORDERED: METHADONE (DETOX) 20 MG, METHADONE (DETOX) 5 MG PO ONE (10:00)
[2019-12-27] MEDS: PRENATAL VITAMINS W/ FOLIC ACID TABLET (FP) PO SCH (10:55)
[2019-12-27] MEDS: MUPIROCIN CA 2% TOPICAL CREAM 15 GM TUBE TP SCH ×2 (10:56→22:50)
[2019-12-27] MEDS: NICOTINE 14 MG/24 HOURS TOPICAL PATCH TD SCH (10:56)
--- NOTE | 2019-12-27 13:45 | PN ---
S CIWA - CIWA Score Nausea/Vomitin-Mild Nausea/No Vomiting Muscle Tremors: 2 Anxiety: 2 Agitation: 2 Paroxysmal Sweats: 1-Minimal Palms Moist Orientation: 0-Oriented Tacttile Disturbances: 1-Very Mild Itch/Numbness Auditory Disturbances: 0-None Visual Disturbances: 0-None Headache: 2-Mild CIWA-Ar Total Score: 11 S COWS - Scale Resting Pulse: 0= [place] 80 or Below Sweatin= No chills or [place] Restless Observation: 0= Sits Still Pupil Size: 1= Pupils >than Normal Bone or Joint Aches: 2= Severe Diffuse Aches Runny Nose/ Eye Tearin= Nasal Congestion GI Upset > 30mins: 2= Nausea/Diarrhea Tremor Observation of Outstretched Hands: 2= Slight Tremor Visible Yawning Observation: 1= 1-2x During Session Anxiety or Irritability: 2=Irritable/Anxious Goose Flesh Skin: 0=Smooth Skin COWS Score: 11 [facility] Progress Note (SOAP) Subjective: alert,irritable,anxious,interrupted sleep,tremor,aching pain in the body and back,ambulation on the unit Objective: 12/27/19 17:19 Vital Signs Temperature 97.4 F L 12/27/19 08:55 Pulse Rate 82 12/27/19 10:53 Respiratory Rate 18 12/27/19 10:53 Blood Pressure 102/68 12/27/19 10:53 O2 Sat by Pulse Oximetry (%) 99 12/27/19 08:55 Laboratory Last Values WBC 5.4 K/mm3 (4.0-10.0) 12/26/19 10:10 RBC 5.19 M/mm3 (4.00-5.60) 12/26/19 10:10 Hgb 15.5 GM/dL (11.7-16.9) 12/26/19 10:10 Hct 45.5 % (35.4-49) 12/26/19 10:10 MCV 87.7 fl (80-96) 12/26/19 10:10 MCH 29.9 pg (25.7-33.7) 12/26/19 10:10 MCHC 34.1 g/dl (32.0-35.9) 12/26/19 10:10 RDW 13.6 % (11.9-15.9) 12/26/19 10:10 Plt Count 220 K/MM3 (134-434) 12/26/19 10:10 MPV 7.5 fl (7.5-11.1) 12/26/19 10:10 Sodium 139 mmol/L (136-145) 12/26/19 10:10 Potassium 4.3 mmol/L (3.5-5.1) 12/26/19 10:10 Chloride 105 mmol/L (98-107) 12/26/19 10:10 Carbon Dioxide 26 mmol/L (21-32) 12/26/19 10:10 Anion Gap 7 MMOL/L (8-16) L 12/26/19 10:10 BUN 18.9 mg/dL (7-18) H 12/26/19 10:10 Creatinine 1.3 mg/dL (0.55-1.3) 12/26/19 10:10 Est GFR (CKD-EPI)AfAm 77.45 12/26/19 10:10 Est GFR (CKD-EPI)NonAf 66.83 12/26/19 10:10 Random Glucose 119 mg/dL (74-106) H 12/26/19 10:10 Calcium 8.9 mg/dL (8.5-10.1) 12/26/19 10:10 Total Bilirubin 0.8 mg/dL (0.2-1) 12/26/19 10:10 AST 11 U/L (15-37) L 12/26/19 10:10 ALT 14 U/L (13-61) 12/26/19 10:10 Alkaline Phosphatase 74 U/L (45-117) 12/26/19 10:10 Total Protein 7.9 g/dl (6.4-8.2) 12/26/19 10:10 Albumin 3.9 g/dl (3.4-5.0) 12/26/19 10:10 Syphilis Serology Non-reactive (NONREACTIVE) 12/26/19 10:10 COVID-19 (MJ) Not detected (Not Detected) 12/26/19 10:10 Assessment: 12/27/19 17:21 withdrawal symptom Plan: continue detox methadone and librium regimen,encourage oral fluid,bun 18.9,initial glucose 119,repeat bmp,fasting glucose in am
[2019-12-27] MEDS: cloNIDine HCL 0.1 MG TABLET PO PRN (20:38)
[2019-12-27] MEDS: MELATONIN 5 MG TABLETS PO SCH (22:50)
[2019-12-27] MEDS: THIAMINE HCL 100 MG TABLET (FP) PO SCH (22:51)
[2019-12-28] MEDS: hydrOXYzine PAMOATE 25 MG CAPSULE (FP) PO SCH ×5 (05:32→22:26)
[2019-12-28] MEDS: chlordiazePOXIDE HCL 25 MG CAPSULE PO SCH ×4 (05:32→22:26)
[2019-12-28] MEDS: cloNIDine HCL 0.1 MG TABLET PO PRN ×2 (05:33→14:31)
[2019-12-28] MEDS ORDERED: METHADONE HCL 10 MG TABLET (FOR DETOX USE ONLY) PO ONE (10:00)
[2019-12-28] MEDS: NICOTINE 14 MG/24 HOURS TOPICAL PATCH TD SCH (10:25)
[2019-12-28] MEDS: PRENATAL VITAMINS W/ FOLIC ACID TABLET (FP) PO SCH (10:26)
[2019-12-28] MEDS: MUPIROCIN CA 2% TOPICAL CREAM 15 GM TUBE TP SCH ×2 (10:27→22:52)
--- NOTE | 2019-12-28 10:27 | PN ---
[facility] CIWA - CIWA Score Nausea/Vomitin-No Nausea/No Vomiting Muscle Tremors: 1-None Visible, but [place] Anxiety: 1-Mildly Anxious Agitation: 0-Normal Activity Paroxysmal Sweats: No Perspiration Orientation: 0-Oriented Tacttile Disturbances: 0-None Auditory Disturbances: 0-None Visual Disturbances: 0-None Headache: 0-None Present CIWA-Ar Total Score: 2 BHS COWS - Scale Resting Pulse: 0= [place] 80 or Below Sweatin= No chills or Flushing Restless Observation: 0= Sits Still Pupil Size: 0= Normal to Room Light Bone or Joint Aches: 0= None Runny Nose/ Eye Tearin= None GI Upset > 30mins: 0= None Tremor Observation of Outstretched Hands: 1= Tremor [place], Not Seen Yawning Observation: 0= None Anxiety or Irritability: 1=Feels Anxious/Irritable Goose Flesh Skin: 0=Smooth Skin COWS Score: 2 S Progress Note (SOAP) Subjective: Feeling well Objective: 12/28/19 10:29 PE Gnl: WDWN, in no distress MS: nl Motor: moves limbs well Coord: nl Laboratory Tests 12/26/19 12/26/19 12/26/19 10:10 10:10 10:10 WBC 5.4 RBC 5.19 Hgb 15.5 Hct 45.5 MCV 87.7 MCH 29.9 MCHC 34.1 RDW 13.6 Plt Count 220 MPV 7.5 Sodium 139 Potassium 4.3 Chloride 105 Carbon Dioxide 26 Anion Gap 7 L BUN 18.9 H Creatinine 1.3 Est GFR (CKD-EPI)AfAm 77.45 Est GFR (CKD-EPI)NonAf 66.83 Random Glucose 119 H Calcium 8.9 Total Bilirubin 0.8 AST 11 L ALT 14 Alkaline Phosphatase 74 Total Protein 7.9 Albumin 3.9 Syphilis Serology Non-reactive COVID-19 (MJ) 12/26/19 10:10 WBC RBC Hgb Hct MCV MCH MCHC RDW Plt Count MPV Sodium Potassium Chloride Carbon Dioxide Anion Gap BUN Creatinine Est GFR (CKD-EPI)AfAm Est GFR (CKD-EPI)NonAf Random Glucose Calcium Total Bilirubin AST ALT Alkaline Phosphatase Total Protein Albumin Syphilis Serology COVID-19 (MJ) Not detected Home Medication List Medication Instructions Recorded Confirmed Type NK [No Known Home Medication] 12/26/19 12/26/19 History Active Medications Generic Name Dose Route Start Last Admin Trade Name Freq PRN Reason Stop Dose Admin Acetaminophen 650 mg 12/26/19 10:32 Tylenol - PO Q6H PRN PAIN LEVEL 4 - 6 Acetaminophen 650 mg 12/26/19 10:32 Tylenol - PO Q6H PRN FEVER Al Hydroxide/Mg Hydroxide 30 ml 12/26/19 10:32 Mylanta Oral Suspension - PO Q6H PRN DYSPEPSIA Bismuth Subsalicylate 30 ml 12/26/19 10:32 Pepto-Bismol Liquid - PO Q1H PRN DIARRHEA Chlordiazepoxide HCl 25 mg 12/28/19 05:00 12/28/19 10:26 Librium - PO 12/28/19 23:01 25 mg [id number] PEACE Administration Chlordiazepoxide HCl 25 mg 12/26/19 10:32 12/26/19 20:42 Librium - PO 12/28/19 23:59 25 mg Q4H PRN Administration WITHDRAWAL(CONT SUBST) Chlordiazepoxide HCl 10 mg 12/29/19 05:00 Librium - PO 12/29/19 23:01 [id number] PEACE Chlordiazepoxide HCl 10 mg 12/30/19 05:00 Librium - PO 12/30/19 17:01 Q12H PEACE Chlordiazepoxide HCl 10 mg 12/29/19 00:00 Librium - PO 12/30/19 00:00 Q4H PRN WITHDRAWAL(CONT SUBST) Chlordiazepoxide HCl 10 mg 12/31/19 05:00 Librium - PO 12/31/19 05:01 ONCE@0500 ONE Clonidine 0.1 mg 12/26/19 10:32 12/28/19 05:33 Catapres - PO 12/28/19 23:59 0.1 mg Q4H PRN Administration Withdrawal Symptoms Eucalyptus/Menthol/Phenol/Sorbitol 1 each 12/26/19 10:32 Cepastat Lozenge - MM 01/01/20 10:32 Q4H PRN SORE THROAT Hydroxyzine Pamoate 25 mg 12/26/19 14:00 12/28/19 10:26 Vistaril - PO 01/01/20 10:32 25 mg Q4HWA PEACE Administration Ibuprofen 400 mg 12/26/19 10:32 Motrin - PO Q6H PRN PAIN LEVEL 1 - 3 Influenza Virus Vaccine 60 mcg 12/28/19 12:00 Flulaval Quad Syr IM 12/28/19 12:01 .ONCE ONE Magnesium Citrate 300 ml 12/26/19 10:32 Citroma - PO Q48H PRN CONSTIPATION Magnesium Hydroxide 30 ml 12/26/19 10:32 Milk Of Magnesia - PO PRN PRN CONSTIPATION Melatonin 5 mg 12/26/19 22:00 12/27/19 22:50 Melatonin PO 5 mg HS PEACE Administration Methadone HCl 5 mg 12/31/19 06:00 Dolophine - PO 12/31/19 06:01 ONCE@0600 ONE Methadone HCl 10 mg 12/30/19 10:00 Dolophine - PO 12/30/19 10:01 ONCE ONE Methadone HCl 10 mg/ Methadone 15 mg 12/29/19 10:00 HCl 5 mg PO 12/29/19 10:01 ONCE ONE Methocarbamol 500 mg 12/26/19 10:32 12/28/19 10:25 Robaxin - PO 01/01/20 10:32 500 mg Q6H PRN Administration MUSCLE SPASMS Mupirocin 1 applic 12/26/19 11:15 12/28/19 10:27 Bactroban 2% Cream - TP Not Given BID PEACE Nicotine 14 mg 12/26/19 10:45 12/28/19 10:25 Nicoderm Patch - TD 14 mg DAILY PEACE Administration Nicotine Polacrilex 2 mg 12/26/19 10:32 Nicorette Gum - BUC Q2H PRN NICOTINE REPLACEMENT RX Ondansetron HCl 4 mg 12/26/19 10:32 Zofran Odt - SL Q8H PRN Nausea/Vomiting Multivit/Folic Acid/Iron 1 tab 12/27/19 10:00 12/28/19 10:26 Vitamins (Sjr) - PO 1 tab DAILY PEACE Administration Thiamine HCl 100 mg 12/26/19 22:00 12/27/19 22:51 Vitamin B1 - PO 100 mg HS PEACE Administration Vital Signs Temperature 97.3 F L 12/28/19 08:28 Pulse Rate 74 12/28/19 08:28 Respiratory Rate 18 12/28/19 08:28 Blood Pressure 98/64 12/28/19 08:28 O2 Sat by Pulse Oximetry (%) 99 12/28/19 06:48 Assessment: 12/28/19 10:27 Mr. Meza is a 44 yo man who presented to [facility] requesting detox admission for alcohol and opiate use disorder. PMH: pancreatitis, renal failure 2017: recovered PSH; none Psych: depression SOC: living in [place] with his Legal: none Imp 1. Alcohol withdrawal, uncomplicated 2. Opiate withdrawal 3. Cannabis dependence 4. Cocaine abuse 5. Nicotine dependence Plan: 1. Librium detox protocol, projected completion on 12/30 2. Methadone detox protocol, projected completion on 12/30 3. Intial labs with mildly elevated glucose and BUN, pt refused repeat labs today. Prior labs reviewed, no abnormal trend in labs
[2019-12-28] MEDS ORDERED: FLU VACCINE (FLULAVAL) PF 60 MCG/0.5 ML SYRINGE 2020-2021 IM ONE (12:00)
[2019-12-28] MEDS: chlordiazePOXIDE HCL 25 MG CAPSULE PO PRN (14:34)
[2019-12-28] MEDS: THIAMINE HCL 100 MG TABLET (FP) PO SCH (22:26)
[2019-12-28] MEDS: MELATONIN 5 MG TABLETS PO SCH (22:26)
[2019-12-29] MEDS ORDERED: chlordiazePOXIDE HCL 10 MG CAPSULE PO PRN
[2019-12-29] MEDS: chlordiazePOXIDE HCL 10 MG CAPSULE PO SCH ×4 (05:44→22:51)
[2019-12-29] MEDS: hydrOXYzine PAMOATE 25 MG CAPSULE (FP) PO SCH ×5 (05:45→22:51)
[2019-12-29] MEDS ORDERED: METHADONE HCL 10 MG TABLET (FOR DETOX USE ONLY) ONE (09:01)
[2019-12-29] MEDS ORDERED: METHADONE HCL 5 MG TABLET (FOR DETOX USE ONLY) ONE (09:02)
[2019-12-29] MEDS ORDERED: METHADONE (DETOX) 10 MG, METHADONE (DETOX) 5 MG PO ONE (10:00)
[2019-12-29] MEDS: PRENATAL VITAMINS W/ FOLIC ACID TABLET (FP) PO SCH (10:14)
[2019-12-29] MEDS: MUPIROCIN CA 2% TOPICAL CREAM 15 GM TUBE TP SCH ×2 (10:14→22:50)
[2019-12-29] MEDS: NICOTINE 14 MG/24 HOURS TOPICAL PATCH TD SCH (10:15)
--- NOTE | 2019-12-29 14:50 | PN ---
S CIWA - CIWA Score Nausea/Vomitin-No Nausea/No Vomiting Muscle Tremors: None Anxiety: 2 Agitation: 0-Normal Activity Paroxysmal Sweats: 2 Orientation: 0-Oriented Tacttile Disturbances: 0-None Auditory Disturbances: 0-None Visual Disturbances: 0-None Headache: 2-Mild CIWA-Ar Total Score: 6 BHS COWS - Scale Resting Pulse: 0= [place] 80 or Below Sweatin= No chills or [place] Restless Observation: 1= Difficult to Sit Still Pupil Size: 0= Normal to Room Light Bone or Joint Aches: 2= Severe Diffuse Aches Runny Nose/ Eye Tearin= None GI Upset > 30mins: 0= None Tremor Observation of Outstretched Hands: 0= None Yawning Observation: 1= 1-2x During Session Anxiety or Irritability: 2=Irritable/Anxious Goose Flesh Skin: 0=Smooth Skin COWS Score: 6 B[facility] Progress Note (SOAP) Subjective: c/o anxiety, headache, and muscle aches. Objective: 12/29/19 14:48 Vital Signs 12/29/19 12/29/19 09:06 13:21 Temperature 98.1 F 97.1 F L Pulse Rate 79 63 Respiratory 18 18 Rate Blood Pressure 98/71 113/76 O2 Sat by Pulse 99 Oximetry (%) Laboratory Last Values WBC 5.4 K/mm3 (4.0-10.0) 12/26/19 10:10 RBC 5.19 M/mm3 (4.00-5.60) 12/26/19 10:10 Hgb 15.5 GM/dL (11.7-16.9) 12/26/19 10:10 Hct 45.5 % (35.4-49) 12/26/19 10:10 MCV 87.7 fl (80-96) 12/26/19 10:10 MCH 29.9 pg (25.7-33.7) 12/26/19 10:10 MCHC 34.1 g/dl (32.0-35.9) 12/26/19 10:10 RDW 13.6 % (11.9-15.9) 12/26/19 10:10 Plt Count 220 K/MM3 (134-434) 12/26/19 10:10 MPV 7.5 fl (7.5-11.1) 12/26/19 10:10 Sodium 139 mmol/L (136-145) 12/26/19 10:10 Potassium 4.3 mmol/L (3.5-5.1) 12/26/19 10:10 Chloride 105 mmol/L (98-107) 12/26/19 10:10 Carbon Dioxide 26 mmol/L (21-32) 12/26/19 10:10 Anion Gap 7 MMOL/L (8-16) L 12/26/19 10:10 BUN 18.9 mg/dL (7-18) H 12/26/19 10:10 Creatinine 1.3 mg/dL (0.55-1.3) 12/26/19 10:10 Est GFR (CKD-EPI)AfAm 77.45 12/26/19 10:10 Est GFR (CKD-EPI)NonAf 66.83 12/26/19 10:10 Random Glucose 119 mg/dL (74-106) H 12/26/19 10:10 Calcium 8.9 mg/dL (8.5-10.1) 12/26/19 10:10 Total Bilirubin 0.8 mg/dL (0.2-1) 12/26/19 10:10 AST 11 U/L (15-37) L 12/26/19 10:10 ALT 14 U/L (13-61) 12/26/19 10:10 Alkaline Phosphatase 74 U/L (45-117) 12/26/19 10:10 Total Protein 7.9 g/dl (6.4-8.2) 12/26/19 10:10 Albumin 3.9 g/dl (3.4-5.0) 12/26/19 10:10 Syphilis Serology Non-reactive (NONREACTIVE) 12/26/19 10:10 COVID-19 (MJ) Not detected (Not Detected) 12/26/19 10:10 Labs noted. Assessment: 12/29/19 14:49 AOX3, in no acute respiratory distress. Full ROM, ambulating in the unit. Withdrawal symptoms. Plan: continue detox.
[2019-12-29] MEDS ORDERED: MASKS NR ONE (19:09)
[2019-12-29] MEDS: THIAMINE HCL 100 MG TABLET (FP) PO SCH (22:51)
[2019-12-29] MEDS: MELATONIN 5 MG TABLETS PO SCH (22:51)
[2019-12-30] MEDS ORDERED: chlordiazePOXIDE HCL 10 MG CAPSULE PO SCH (05:00)
[2019-12-30] MEDS: hydrOXYzine PAMOATE 25 MG CAPSULE (FP) PO SCH ×2 (06:57→09:22)
--- NOTE | 2019-12-30 09:02 | DS ---
[facility] Detox Discharge Summary Admission Date: 12/26/19 Discharge Date: 12/30/19 - History Present History: Alcohol Dependence, Opioid Dependence Additional Comments: 44 years old male was admitted on 12/26/19 for alcohol and opiate withdrawal sx management treated with librium and methadone detox regiments mr morgan states that his mother is in icu and needs to leave the detox today alert oriented x 3 speech clearly coherently ambulating steady gait mr morgan ate breakfast and showered and received methadone 10 mg po and librum 10 mg po General Appearance: Yes: No Apparent Distress, Nourished, Appropriately Dressed, Thin HEENTM: Yes: EOMI, Hearing grossly Normal, Normocephalic, Normal Voice Respiratory: Yes: Lungs Clear, No Respiratory Distress, No Accessory Muscle Use Neck: Yes: Within Normal Limits, Supple Breast: Yes: Breast Exam Deferred Cardiology: Yes: Regular Rhythm, Regular Rate Abdominal: Yes: Normal Bowel Sounds, Non Tender, Flat, Soft Genitourinary: Yes: Other (deferred) Back: Yes: Normal Inspection Musculoskeletal: Yes: Gait Steady Extremities: Yes: Normal Inspection Neurological: Yes: Alert, Normal Response Integumentary: Yes: Track Babcock, Other (multiple circular scabbed over lesions on legs, one on left forearm) Pertinent Past History: time for discharge 42 minutes treatment team met with mr morgan to discuss benefits of librium and methadone regiments completion mr morgan insists to leave today instead of estimated discharge day of 12/31/19 - Physical Exam Results Vital Signs: Vital Signs Temperature 97.5 F L 12/30/19 07:11 Pulse Rate 74 12/30/19 07:11 Respiratory Rate 18 12/30/19 07:11 Blood Pressure 117/71 12/30/19 07:11 O2 Sat by Pulse Oximetry (%) 98 12/30/19 07:11 Pertinent Admission Physical Exam Findings: alcohol and opiate withdrawal Vital Signs - 24 hr 12/29/19 12/29/19 12/30/19 16:31 20:38 07:11 Temperature 97.1 F L 97.7 F 97.5 F L Pulse Rate 65 59 L 74 Respiratory 17 17 18 Rate Blood Pressure 104/73 113/74 117/71 O2 Sat by Pulse 96 98 Oximetry (%) 12/30/19 09:18 Temperature 97.6 F Pulse Rate 66 Respiratory 18 Rate Blood Pressure 115/69 O2 Sat by Pulse Oximetry (%) Laboratory Tests 12/26/19 12/26/19 12/26/19 10:10 10:10 10:10 WBC 5.4 RBC 5.19 Hgb 15.5 Hct 45.5 MCV 87.7 MCH 29.9 MCHC 34.1 RDW 13.6 Plt Count 220 MPV 7.5 Sodium 139 Potassium 4.3 Chloride 105 Carbon Dioxide 26 Anion Gap 7 L BUN 18.9 H Creatinine 1.3 Est GFR (CKD-EPI)AfAm 77.45 Est GFR (CKD-EPI)NonAf 66.83 Random Glucose 119 H Calcium 8.9 Total Bilirubin 0.8 AST 11 L ALT 14 Alkaline Phosphatase 74 Total Protein 7.9 Albumin 3.9 Syphilis Serology Non-reactive COVID-19 (MJ) 12/26/19 10:10 WBC RBC Hgb Hct MCV MCH MCHC RDW Plt Count MPV Sodium Potassium Chloride Carbon Dioxide Anion Gap BUN Creatinine Est GFR (CKD-EPI)AfAm Est GFR (CKD-EPI)NonAf Random Glucose Calcium Total Bilirubin AST ALT Alkaline Phosphatase Total Protein Albumin Syphilis Serology COVID-19 (MJ) Not detected lab noted - Treatment Hospital Course: Detox Protocol Followed, Detoxed Safely, Responded well, Discharged Condition Good, Rehab Referral Accepted Patient has Accepted a Rehab Referral to: community support AA/NA - Medication Discharge Medications: Ambulatory Orders NK [No Known Home Medication] 12/26/19 - Diagnosis (1) Substance induced mood disorder Status: Suspected (2) Opioid dependence Status: Active (3) Alcohol dependence with uncomplicated withdrawal Status: Acute (4) Nicotine dependence Status: Acute Qualifiers: Nicotine product type: cigarettes Substance use status: in withdrawal Qualified Code(s): F17.213 - Nicotine dependence, cigarettes, with withdrawal (5) Weight loss Status: Chronic - AMA Did Patient Leave Against Medical Advice: No CIWA Score - CIWA Score Nausea/Vomitin-No Nausea/No Vomiting Muscle Tremors: None Anxiety: 1-Mildly Anxious Agitation: 0-Normal Activity Paroxysmal Sweats: 1-Minimal Palms Moist Orientation: 0-Oriented Tacttile Disturbances: 0-None Auditory Disturbances: 0-None Visual Disturbances: 0-None Headache: 1-Very Mild CIWA-Ar Total Score: 3 COWS (PN) - Opiate Withdrawal Resting Pulse: 0= [place] 80 or Below Sweatin= No chills or Flushing Restless Observation: 0= Sits Still Pupil Size: 0= Normal to Room Light Bone or Joint Aches: 1= Mild Discomfort Runny Nose/ Eye Tearin= None GI Upset > 30mins: 0= None Tremor Observation of Outstretched Hands: 1= Tremor [place], Not Seen Yawning Observation: 0= None Anxiety or Irritability: 1=Feels Anxious/Irritable Goose Flesh Skin: 0=Smooth Skin COWS Score: 3
[2019-12-30] MEDS: NICOTINE 14 MG/24 HOURS TOPICAL PATCH TD SCH (09:22)
[2019-12-30] MEDS: MUPIROCIN CA 2% TOPICAL CREAM 15 GM TUBE TP SCH (09:22)
[2019-12-30 09:26] VITALS: BP 115/69; PULSE 66; TEMP 97.6
[2019-12-30] MEDS: PRENATAL VITAMINS W/ FOLIC ACID TABLET (FP) PO SCH (09:36)
[2019-12-30] MEDS ORDERED: METHADONE HCL 10 MG TABLET (FOR DETOX USE ONLY) PO ONE (10:00)
[2019-12-31] MEDS ORDERED: chlordiazePOXIDE HCL 10 MG CAPSULE PO ONE (05:00)
[2019-12-31] MEDS ORDERED: METHADONE HCL 5 MG TABLET (FOR DETOX USE ONLY) PO ONE (06:00)
== END 2019-12-30 09:23 | disposition home or self-care (01) | DRG 773 ==
LOC: YASAS 09:24 → Y3N 10:44
PROVIDERS: ADMIT Allergy & Immunology; ATTEND Allergy & Immunology
PROC: HZ2ZZZZ Detoxification Services for Substance Abuse Treatment (ICD-10-PCS; principal; 2019-12-26)
DX: F10.230 Alcohol dependence with withdrawal, uncomplicated (principal); F11.23 Opioid dependence with withdrawal; F14.20 Cocaine dependence, uncomplicated; F12.20 Cannabis dependence, uncomplicated; F17.213 Nicotine dependence, cigarettes, with withdrawal; F19.24 Other psychoactive substance dependence with psychoactive substance-induced mood disorder; F32.9 Major depressive disorder, single episode, unspecified; F43.10 Post-traumatic stress disorder, unspecified; Z87.19 Personal history of other diseases of the digestive system; Z87.448 Personal history of other diseases of urinary system; R63.4 Abnormal weight loss; Z68.21 Body mass index [BMI] 21.0-21.9, adult; Z91.018 Allergy to other foods
CPT/HCPCS: 36415; 80053; 85027; 86780; 93005; 93010; C9803; J0735; U0003

== ENCOUNTER 2024-02-17 20:41 | Emergency (ER) | payer OTHER ==
[2024-02-17 20:47] VITALS: PULSE 60; BMI 25.8
[2024-02-17] MEDS ORDERED: ACETAMINOPHEN 500 MG TABLET (FP) ONE (21:54)
[2024-02-17] MEDS: ACETAMINOPHEN 500 MG TABLET (FP) PO ONE (22:00)
[2024-02-17 22:17] LABS: BASO % 0.5 % (0-2.0); EOS % 2.1 % (0-4.5); HEMATOCRIT 40.8 % (35.4-49); HEMOGLOBIN 13.1 GM/dL (11.7-16.9); LYMPH % 29.2 % (8-40); MCH 28.9 pg (25.7-33.7); MCHC 32.2 g/dl (32.0-35.9); MEAN CELL VOLUME 89.7 fl (80-96); MEAN PLT VOLUME 6.8 fl (7.5-11.1); MONO % 8.4 % (3.8-10.2); NEUT % 59.8 % (42.8-82.8); PLATELET COUNT 225 10^3/uL (134-434); RBC 4.55 M/mm3 (4.00-5.60); RDW 14.4 % (11.9-15.9); WHITE BLOOD COUNT 6.4 K/mm3 (4.0-10.0)
[2024-02-17 22:27] LABS: INR 1.01 (0.83-1.09); PROTHROMBIN TIME (PATIENT) 11.4 SEC (9.7-13.0)
[2024-02-17 22:46] LABS: POTASSIUM 4.3 mmol/L (3.5-5.1)
[2024-02-17 22:50] LABS: ALBUMIN 3.7 g/dl (3.4-5.0); BLOOD UREA NITROGEN 16.7 mg/dL (7-18); CALCIUM 9.3 mg/dL (8.5-10.1)
[2024-02-17 22:52] LABS: CREATININE 1.4 mg/dL (0.55-1.3)
[2024-02-17 22:54] LABS: BILIRUBIN,TOTAL 0.3 mg/dL (0.2-1); TOT PROT 7.8 g/dl (6.4-8.2)
[2024-02-17 23:11] LABS: ERYTHROCYTE SEDIMENTATION RATE 14 mm/hr (0-10)
[2024-02-18 00:28] VITALS: BP 104/72; RESP 16; TEMP 97.2
== END 2024-02-18 00:30 | disposition home or self-care (01) ==
LOC: JER 20:41
DX: R60.0 Localized edema (principal); M79.89 Other specified soft tissue disorders
CPT/HCPCS: 36415; 80053; 85025; 85610; 85651; 85730; 86140; 93971-TC; 99284-25